=== PATIENT | female | born 1930 | race Asian ===

== ENCOUNTER 2017-03-27 15:18 | Emergency (ER) | payer OTHER, MEDICAID ==
[~2017-03-27] VITALS: Ht 149.9 cm; Wt 38.1 kg
[~2017-03-27 15:18] MED LIST: ACAR100T3 PO; ACET-2165 PO; ATEN-166 PO; CLOP75TA2 PO; INSU100V9 SUBCUT; LACO10SO PO; LEVE500T13 PO; LIP40 PO; LOPE2CAP PO; LOSA100T11 PO; MAGN400O4 PO; MEMA5TAB PO; METF1000 PO; SENN-153 PO; SITA100T7 PO
[2017-03-27 15:28] VITALS: BP 117/65; PULSE 82; RESP 18; TEMP 97; O2SAT 97
[2017-03-27 16:47] LABS: ANION GAP 9 (5-15); BASOPHILS % (AUTO) 0.5 % (0.0-2.0); CALCIUM 9.3 mg/dL (8.4-11.0); CHLORIDE 100 mmol/L (98-107); CREATININE 0.99 mg/dL (0.55-1.30); EOSINOPHILS # (AUTO) 0.1 K/uL (0.0-0.4); EOSINOPHILS % (AUTO) 1.9 % (0.0-4.0); GLUCOSE 153 mg/dL (70-99); HEMATOCRIT 35.7 % (36-48); HEMOGLOBIN 11.9 g/dL (12.0-16.0); LYMPHOCYTES # (AUTO) 1.2 K/uL (1.0-5.5); LYMPHOCYTES % (AUTO) 22.7 % (20.5-51.5); MEAN CORPUSCULAR HEMOGLOBIN 31 pg (27-31); MEAN CORPUSCULAR HGB CONC 33 % (32-36); MEAN CORPUSCULAR VOLUME 93 fL (79.0-98.0); MONOCYTES # (AUTO) 0.3 K/uL (0.0-1.0); NEUTROPHILS # (AUTO) 3.7 K/uL (1.8-7.7); NEUTROPHILS % (AUTO) 68.9 % (40.0-70.0); PLATELET COUNT (AUTO) 259 K/uL (130-430); POTASSIUM 4.2 mmol/L (3.5-5.1); RED BLOOD CELL COUNT(AUTO) 3.84 MIL/uL (4.2-6.2); RED CELL DISTRIBUTION WIDTH 12.7 % (9.0-15.0); SODIUM SERUM 137 mmol/L (136-145); UREA NITROGEN, BLOOD 13 mg/dL (8-21); WHITE BLOOD COUNT (AUTO) 5.3 K/uL (4.8-10.8)
[2017-03-27 16:52] LABS: ALANINE AMINOTRANSFERASE 14 U/L (12-78); ALBUMIN 3.9 g/dL (3.4-4.8); ASPARTATE AMINOTRANSFERASE 10 U/L (10-37); TOTAL BILIRUBIN 0.3 mg/dL (0.0-1.0); TOTAL PROTEIN, SERUM 7.5 g/dL (6.4-8.3)
[2017-03-27] MEDS ORDERED: NACL 0.9% 1,000 ML IV ONE (17:30)
[2017-03-27 19:15] VITALS: BP 118/64; PULSE 86; RESP 18; TEMP 97; O2SAT 97
[2017-03-27] MEDS ORDERED: HYDROcodone/ACETAMIN 5-325 MG TAB (NORCO/ VICODIN) PO ONE (19:15)
== END 2017-03-27 19:15 | disposition home or self-care (01) ==
LOC: SED 15:18
DX: G43.909 Migraine, unspecified, not intractable, without status migrainosus (principal); M94.0 Chondrocostal junction syndrome [Tietze]; E11.9 Type 2 diabetes mellitus without complications; I10 Essential (primary) hypertension; F03.90 Unspecified dementia, unspecified severity, without behavioral disturbance, psychotic disturbance, mood disturbance, and anxiety; Z86.73 Personal history of transient ischemic attack (TIA), and cerebral infarction without residual deficits; Z88.0 Allergy status to penicillin; Z79.4 Long term (current) use of insulin
CPT/HCPCS: 36415; 70450; 71010; 71250; 74176; 80053; 84484; 85025; 93005; 96360; 99285; J7030

== ENCOUNTER 2017-05-03 21:01 | Inpatient (IN) | payer OTHER, MEDICAID ==
[~2017-05-03] VITALS: Ht 149.9 cm; Wt 39.0 kg
[2017-05-03 21:01] VITALS: BP_SYST 155
[2017-05-03] MEDS ORDERED: NACL 0.9% 1,000 ML IV ONE (21:45)
[2017-05-03 22:04] LABS: BASOPHILS % (AUTO) 0.6 % (0.0-2.0); EOSINOPHILS # (AUTO) 0.1 K/uL (0.0-0.4); EOSINOPHILS % (AUTO) 2.6 % (0.0-4.0); LYMPHOCYTES # (AUTO) 1.3 K/uL (1.0-5.5); MEAN CORPUSCULAR HEMOGLOBIN 32 pg (27-31); MEAN CORPUSCULAR HGB CONC 34 % (32-36); MEAN CORPUSCULAR VOLUME 94 fL (79.0-98.0); MONOCYTES # (AUTO) 0.3 K/uL (0.0-1.0); MONOCYTES % (AUTO) 4.9 % (1.7-9.3); NEUTROPHILS # (AUTO) 3.8 K/uL (1.8-7.7); NEUTROPHILS % (AUTO) 67.9 % (40.0-70.0); PLATELET COUNT (AUTO) 279 K/uL (130-430); RED BLOOD CELL COUNT(AUTO) 3.74 MIL/uL (4.2-6.2); RED CELL DISTRIBUTION WIDTH 12.5 % (9.0-15.0); WHITE BLOOD COUNT (AUTO) 5.5 K/uL (4.8-10.8)
[2017-05-03 22:24] LABS: ANION GAP 7 (5-15); CALCIUM 9.1 mg/dL (8.4-11.0); CHLORIDE 99 mmol/L (98-107); CREATININE 0.92 mg/dL (0.55-1.30); GLUCOSE 223 mg/dL (70-99); POTASSIUM 3.9 mmol/L (3.5-5.1); SODIUM SERUM 136 mmol/L (136-145); UREA NITROGEN, BLOOD 10 mg/dL (8-21)
[2017-05-03 22:29] LABS: ALANINE AMINOTRANSFERASE 11 U/L (12-78); ALBUMIN 3.7 g/dL (3.4-4.8); ASPARTATE AMINOTRANSFERASE 10 U/L (10-37); TOTAL BILIRUBIN 0.3 mg/dL (0.0-1.0); TOTAL PROTEIN, SERUM 7.5 g/dL (6.4-8.3)
[2017-05-03 23:07] LABS: BILIRUBIN,URINE NEGATIVE (NEGATIVE); BLOOD, URINE NEGATIVE (NEGATIVE); CLARITY/URINE CLEAR (CLEAR); COLOR,URINE YELLOW (YELLOW); GLUCOSE,URINE 1+ (NEGATIVE); KETONES,URINE NEGATIVE (NEGATIVE); LEUKOCYTE ESTERASE ,URINE NEGATIVE (NEGATIVE); NITRITE, URINE NEGATIVE (NEGATIVE); PROTEIN URINE NEGATIVE (NEGATIVE); UROBILINOGEN,URINE 0.2 (0.2-1.0)
[2017-05-03] MEDS ORDERED: ASPIRIN 81 MG TAB.CHEW PO ONE (23:30)
[2017-05-03] MEDS ORDERED: MEGE400O PO (23:43)
[2017-05-03] MEDS ORDERED: MEMA5TAB PO (23:43)
[2017-05-03] MEDS ORDERED: FOLI-43 PO (23:43)
[2017-05-03] MEDS ORDERED: LINA5TAB2 PO (23:43)
[2017-05-03] MEDS ORDERED: VITD400 PO (23:43)
[2017-05-03] MEDS ORDERED: 0.45% NACL 1,000 ML IV ONE (23:45)
[2017-05-04] VITALS (7 sets, daily range): BP systolic 110–150
[2017-05-04 06:32] LABS: BASOPHILS % (AUTO) 0.4 % (0.0-2.0); EOSINOPHILS # (AUTO) 0.1 K/uL (0.0-0.4); EOSINOPHILS % (AUTO) 1.8 % (0.0-4.0); HEMATOCRIT 33.8 % (36-48); HEMOGLOBIN 11.2 g/dL (12.0-16.0); MEAN CORPUSCULAR HEMOGLOBIN 31 pg (27-31); MEAN CORPUSCULAR HGB CONC 33 % (32-36); MEAN CORPUSCULAR VOLUME 94 fL (79.0-98.0); MONOCYTES # (AUTO) 0.3 K/uL (0.0-1.0); MONOCYTES % (AUTO) 5.8 % (1.7-9.3); NEUTROPHILS # (AUTO) 4.2 K/uL (1.8-7.7); PLATELET COUNT (AUTO) 257 K/uL (130-430); RED BLOOD CELL COUNT(AUTO) 3.58 MIL/uL (4.2-6.2); RED CELL DISTRIBUTION WIDTH 12.7 % (9.0-15.0); WHITE BLOOD COUNT (AUTO) 5.6 K/uL (4.8-10.8)
[2017-05-04 07:08] LABS: ANION GAP 9 (5-15); CALCIUM 8.9 mg/dL (8.4-11.0); CHLORIDE 106 mmol/L (98-107); CREATININE 0.63 mg/dL (0.55-1.30); GLUCOSE 191 mg/dL (70-99); POTASSIUM 3.8 mmol/L (3.5-5.1); SODIUM SERUM 144 mmol/L (136-145); UREA NITROGEN, BLOOD 8 mg/dL (8-21)
[2017-05-04 07:19] LABS: ALANINE AMINOTRANSFERASE 10 U/L (12-78); ALBUMIN 3.4 g/dL (3.4-4.8); ASPARTATE AMINOTRANSFERASE 9 U/L (10-37); CREATINE KINASE, TOTAL 19 U/L (26-192); TOTAL BILIRUBIN 0.4 mg/dL (0.0-1.0); TOTAL PROTEIN, SERUM 6.8 g/dL (6.4-8.3)
[2017-05-04] MEDS ORDERED: MILK OF MAGNESIA 30 ML UDC PO PRN ×2 (08:30→19:30)
[2017-05-04] MEDS: MEMANTINE HCL 5 MG TABLET PO SCH ×2 (09:00→21:31)
[2017-05-04] MEDS ORDERED: MEMANTINE HCL 5 MG TABLET PO SCH (09:00)
[2017-05-04] MEDS ORDERED: GLUCOSE 15 GM GEL (in 37.5 GM TUBE) PO PRN ×2 (09:45)
[2017-05-04] MEDS ORDERED: DEXTROSE 50%-WATER 50 ML DISP.SYRIN IVP PRN ×2 (09:45)
[2017-05-04] MEDS: MEGESTROL ACETATE 400 MG/10 ML UDC PO SCH (13:04)
[2017-05-04] MEDS: FOLIC ACID 1 MG TABLET PO SCH (13:05)
[2017-05-04] MEDS: CHOLECALCIFEROL (VITAMIN D-3) 400 UNIT TABLET PO SCH (13:05)
[2017-05-04] MEDS: CLOPIDOGREL BISULFATE 75 MG TABLET PO SCH (13:05)
[2017-05-04] MEDS: levETIRAcetam 500 MG TABLET PO SCH ×2 (13:05→21:31)
[2017-05-04] MEDS: ATENOLOL 25 MG TABLET(TENORMIN) PO SCH (13:07)
[2017-05-04] MEDS: INSULIN REGULAR, HUMAN 100 UNITS/ML, 10 ML VIAL (novoLIN R) SUBCUT PRN ×3 (13:17→21:31)
[2017-05-04] MEDS: metFORMIN HCL 500 MG TABLET PO SCH (18:34)
[2017-05-04] MEDS: LACOSAMIDE 100 MG TABLET PO SCH (21:31)
[2017-05-05 05:34] VITALS: BP_SYST 125
[2017-05-05] MEDS: INSULIN REGULAR, HUMAN 100 UNITS/ML, 10 ML VIAL (novoLIN R) SUBCUT PRN ×3 (06:50→20:46)
[2017-05-05 08:10] VITALS: BP_SYST 128
[2017-05-05] MEDS: MEMANTINE HCL 5 MG TABLET PO SCH ×2 (08:40→20:39)
[2017-05-05] MEDS: CHOLECALCIFEROL (VITAMIN D-3) 400 UNIT TABLET PO SCH (08:40)
[2017-05-05] MEDS: metFORMIN HCL 500 MG TABLET PO SCH ×2 (08:40→17:36)
[2017-05-05] MEDS: CLOPIDOGREL BISULFATE 75 MG TABLET PO SCH (08:40)
[2017-05-05] MEDS: MEGESTROL ACETATE 400 MG/10 ML UDC PO SCH (08:40)
[2017-05-05] MEDS: LACOSAMIDE 100 MG TABLET PO SCH ×2 (08:41→20:39)
[2017-05-05] MEDS: ATENOLOL 25 MG TABLET(TENORMIN) PO SCH (08:42)
[2017-05-05] MEDS: FOLIC ACID 1 MG TABLET PO SCH (08:42)
[2017-05-05] MEDS: levETIRAcetam 500 MG TABLET PO SCH ×2 (08:42→20:39)
[2017-05-05 12:26] VITALS: BP_SYST 157
[2017-05-05 16:13] VITALS: BP_SYST 121
[2017-05-05 19:50] VITALS: BP_SYST 102
[2017-05-06] VITALS: BP_SYST 118
[2017-05-06 06:00] VITALS: BP_SYST 127
[2017-05-06] MEDS: INSULIN REGULAR, HUMAN 100 UNITS/ML, 10 ML VIAL (novoLIN R) SUBCUT PRN ×2 (06:21→11:25)
[2017-05-06] MEDS: FOLIC ACID 1 MG TABLET PO SCH (09:57)
[2017-05-06] MEDS: ATENOLOL 25 MG TABLET(TENORMIN) PO SCH (09:59)
[2017-05-06] MEDS: levETIRAcetam 500 MG TABLET PO SCH (09:59)
[2017-05-06] MEDS: CHOLECALCIFEROL (VITAMIN D-3) 400 UNIT TABLET PO SCH (09:59)
[2017-05-06] MEDS: LACOSAMIDE 100 MG TABLET PO SCH (09:59)
[2017-05-06] MEDS: CLOPIDOGREL BISULFATE 75 MG TABLET PO SCH (09:59)
[2017-05-06] MEDS: metFORMIN HCL 500 MG TABLET PO SCH (10:00)
[2017-05-06] MEDS: MEGESTROL ACETATE 400 MG/10 ML UDC PO SCH (10:00)
[2017-05-06] MEDS: MEMANTINE HCL 5 MG TABLET PO SCH (10:00)
[2017-05-06 10:01] VITALS: BP_SYST 156
[2017-05-06 12:27] VITALS: BP_SYST 135
[2017-05-06 12:31] VITALS: BP_SYST 135
[2017-05-06 16:23] VITALS: BP_SYST 126
== END 2017-05-06 16:00 | DRG 884 ==
LOC: SED 21:01 → STU 23:31 → SMU 05-04 16:23
PROVIDERS: ADMIT Family Medicine; ATTEND Family Medicine
DX: F03.90 Unspecified dementia, unspecified severity, without behavioral disturbance, psychotic disturbance, mood disturbance, and anxiety (principal); G93.41 Metabolic encephalopathy; Z68.1 Body mass index [BMI] 19.9 or less, adult; Z74.01 Bed confinement status; I10 Essential (primary) hypertension; E11.9 Type 2 diabetes mellitus without complications; G40.909 Epilepsy, unspecified, not intractable, without status epilepticus; Z88.0 Allergy status to penicillin; Z79.899 Other long term (current) drug therapy; Z86.73 Personal history of transient ischemic attack (TIA), and cerebral infarction without residual deficits
CPT/HCPCS: 36415; 70450-TC; 71010; 80053; 81003; 82550-TC; 82962; 84484; 85025; 93005; 93306; 96360; 97110-GP; 97116-GP; 97530-GP; 99285; J1815; J7030

== ENCOUNTER 2017-06-10 12:36 | Inpatient (IN) | payer OTHER, MEDICAID ==
[~2017-06-10] VITALS: Ht 152.4 cm; Wt 44.9 kg
[2017-06-10 12:36] VITALS: BP_SYST 118
[~2017-06-10 12:36] MED LIST changes: -ACAR100T3 PO; -ACET-2165 PO; +FOLI-43 PO; -INSU100V9 SUBCUT; +LINA5TAB2 PO; -LIP40 PO; -LOPE2CAP PO; -LOSA100T11 PO; -MAGN400O4 PO; +MEGE400O PO; -SENN-153 PO; -SITA100T7 PO; +VITD400 PO
[2017-06-10 14:15] LABS: BLOOD GAS PH 7.469 (7.350-7.450)
[2017-06-10 14:16] LABS: ABG TOTAL HEMOGLOBIN 11.9 G/dL (12.0-18.0); BLOOD GAS COHb% 0.2 % (0.5-1.5); BLOOD O2Hb% 74.4 % (94.0-97.0)
[2017-06-10 14:17] LABS: BLOOD GAS HHB 25.3 % (0.0-6.0)
[2017-06-10 14:37] LABS: BASOPHILS # (AUTO) 0.1 K/uL (0.0-0.2); BASOPHILS % (AUTO) 1.1 % (0.0-2.0); EOSINOPHILS # (AUTO) 0.1 K/uL (0.0-0.4); EOSINOPHILS % (AUTO) 0.4 % (0.0-4.0); HEMATOCRIT 34.3 % (36-48); HEMOGLOBIN 11.3 g/dL (12.0-16.0); LYMPHOCYTES # (AUTO) 0.6 K/uL (1.0-5.5); LYMPHOCYTES % (AUTO) 4.6 % (20.5-51.5); MEAN CORPUSCULAR HEMOGLOBIN 32 pg (27-31); MEAN CORPUSCULAR HGB CONC 33 % (32-36); MEAN CORPUSCULAR VOLUME 96 fL (79.0-98.0); MONOCYTES # (AUTO) 0.1 K/uL (0.0-1.0); NEUTROPHILS # (AUTO) 12.2 K/uL (1.8-7.7); NEUTROPHILS % (AUTO) 92.9 % (40.0-70.0); PLATELET COUNT (AUTO) 377 K/uL (130-430); RED BLOOD CELL COUNT(AUTO) 3.56 MIL/uL (4.2-6.2); RED CELL DISTRIBUTION WIDTH 13.5 % (9.0-15.0); WHITE BLOOD COUNT (AUTO) 13.1 K/uL (4.8-10.8)
[2017-06-10 14:51] LABS: ANION GAP 10 (5-15); CALCIUM 8.8 mg/dL (8.4-11.0); CHLORIDE 103 mmol/L (98-107); CREATININE 0.89 mg/dL (0.55-1.30); GLUCOSE 176 mg/dL (70-99); SODIUM SERUM 140 mmol/L (136-145); UREA NITROGEN, BLOOD 20 mg/dL (8-21)
[2017-06-10 14:55] LABS: ACETAMINOPHEN 10 ug/mL (1-30); ALANINE AMINOTRANSFERASE 88 U/L (12-78); ALBUMIN 3.2 g/dL (3.4-4.8); ALCOHOL, BLOOD < 3 mg/dL (<10); ASPARTATE AMINOTRANSFERASE 94 U/L (10-37); SALICYLATE 2 mg/dL (3-30); TOTAL BILIRUBIN 0.4 mg/dL (0.0-1.0); TOTAL PROTEIN, SERUM 7.2 g/dL (6.4-8.3)
[2017-06-10] MEDS ORDERED: ETOMIDATE 20 MG/ 10 ML VIAL (AMIDATE) IVP ONE ×2 (15:00→17:00)
[2017-06-10] MEDS ORDERED: SUCCINYLCHOLINE CHLORIDE 20 MG/ML(QUELICIN) IVP ONE ×2 (15:00→17:00)
[2017-06-10 15:03] LABS: INR 0.9 (0.8-1.2); PROTHROMBIN TIME 10.1 SECS (9.5-12.5)
[2017-06-10] MEDS ORDERED: NACL 0.9% 1,000 ML IV ONE (16:15)
[2017-06-10] MEDS ORDERED: GENTAMICIN 80 mg/100 mL NS 100 ML IV ONE (16:30)
[2017-06-10] MEDS ORDERED: VANCOMYCIN HCL 1,000 MG in NS 250 ML IV ONE (16:30)
[2017-06-10] MEDS ORDERED: LORazepam 2 MG/ML VIAL (FOR ER USE) ONE (16:47)
[2017-06-10] MEDS ORDERED: PROPOFOL DRIP 100 ML IV ONE ×2 (16:48→17:00)
[2017-06-10] MEDS ORDERED: VANCOMYCIN HCL 1000 MG/VIAL IV ONE (16:55)
[2017-06-10] MEDS ORDERED: LORazepam 2 MG/ML VIAL (FOR ER USE) IVP ONE (17:00)
[2017-06-10 17:18] LABS: BILIRUBIN,URINE NEGATIVE (NEGATIVE); BLOOD, URINE NEGATIVE (NEGATIVE); CLARITY/URINE CLEAR (CLEAR); COLOR,URINE YELLOW (YELLOW); GLUCOSE,URINE TRACE (NEGATIVE); KETONES,URINE NEGATIVE (NEGATIVE); LEUKOCYTE ESTERASE ,URINE NEGATIVE (NEGATIVE); NITRITE, URINE NEGATIVE (NEGATIVE); PROTEIN URINE 1+ (NEGATIVE); UROBILINOGEN,URINE 0.2 (0.2-1.0)
[2017-06-10] MEDS ORDERED: TRAM50TA92 PO (17:19)
[2017-06-10] MEDS ORDERED: ACET325T53 PO (17:19)
[2017-06-10] MEDS ORDERED: MELA3TAB37 PO (17:19)
[2017-06-10] MEDS ORDERED: LIP40 PO (17:19)
[2017-06-10 17:24] LABS: BLOOD GAS PH 7.412 (7.350-7.450)
[2017-06-10 17:26] LABS: ABG TOTAL HEMOGLOBIN 10.1 G/dL (12.0-18.0); BLOOD GAS BASE EXCESS -6.2 mmol/L (-3.0-3.0); BLOOD GAS COHb% 0.3 % (0.5-1.5); BLOOD GAS HHB 1.9 % (0.0-6.0); BLOOD O2Hb% 97.7 % (94.0-97.0)
[2017-06-10] MEDS ORDERED: IOHEXOL 100 ML IV ONE (17:38)
[2017-06-10 17:44] LABS: BACTERIA,URINE MODERATE /HPF (None Seen); RBC,URINE 0-3 /HPF (0-3)
[2017-06-10 17:45] LABS: MUCUS,URINE 1+ /LPF (None Seen); YEAST,URINE Few /HPF (None Seen)
[2017-06-10] MEDS ORDERED: ACETAMINOPHEN 325 MG TABLET PO PRN (19:30)
[2017-06-10] MEDS ORDERED: HYDROCORTISONE SOD SUCC 100 MG/2 ML VIAL ONE ×2 (19:31→19:32)
[2017-06-10] MEDS ORDERED: NOREPINEPHRINE 4 MG/4 ML VIAL IV ONE (19:44)
[2017-06-10] MEDS ORDERED: DEXTROSE 50% JECT 50 ML DISP.SYRIN IVP PRN (19:45)
[2017-06-10] MEDS ORDERED: INSULIN REGULAR, HUMAN 100 UNITS/ML, 10 ML VIAL (novoLIN R) SUBCUT PRN (19:45)
[2017-06-10 20:00] VITALS: BP_SYST 115
[2017-06-10] MEDS ORDERED: NOREPINEPHRINE BITARTRATE 4 MG in D5W 246 ML IV PRN (20:00)
[2017-06-10] MEDS ORDERED: NACL 0.9% 1,000 ML IV SCH (20:15)
[2017-06-10 20:26] LABS: MEAN CORPUSCULAR HGB CONC 32 % (32-36)
[2017-06-10 20:31] LABS: HEMATOCRIT 26.1 % (36-48); HEMOGLOBIN 8.4 g/dL (12.0-16.0); MEAN CORPUSCULAR HEMOGLOBIN 32 pg (27-31); MEAN CORPUSCULAR VOLUME 99 fL (79.0-98.0); PLATELET COUNT (AUTO) 254 K/uL (130-430); RED BLOOD CELL COUNT(AUTO) 2.63 MIL/uL (4.2-6.2); RED CELL DISTRIBUTION WIDTH 13.2 % (9.0-15.0)
[2017-06-10 20:34] LABS: WHITE BLOOD COUNT (AUTO) 21.2 K/uL (4.8-10.8)
[2017-06-10 20:38] LABS: ANION GAP 20 (5-15); CHLORIDE 111 mmol/L (98-107); GLUCOSE 245 mg/dL (70-99); SODIUM SERUM 152 mmol/L (136-145); UREA NITROGEN, BLOOD 27 mg/dL (8-21)
[2017-06-10 20:42] LABS: BLOOD GAS PH 7.071 (7.350-7.450)
[2017-06-10 20:43] LABS: ABG TOTAL HEMOGLOBIN 9.2 G/dL (12.0-18.0); BLOOD GAS BASE EXCESS -21.1 mmol/L (-3.0-3.0); BLOOD GAS COHb% 0.3 % (0.5-1.5); BLOOD GAS HHB 1.7 % (0.0-6.0); BLOOD O2Hb% 97.2 % (94.0-97.0)
[2017-06-10] MEDS ORDERED: SODIUM BICARBONATE 8.4% JECT 100 MEQ in D5W 1,000 ML IV SCH (20:45)
[2017-06-10] MEDS ORDERED: SODIUM BICARBONATE 8.4% JECT 50 MEQ/50 ML SYRINGE ONE ×2 (20:45→21:38)
[2017-06-10 20:51] VITALS: BP_SYST 171
[2017-06-10 20:54] VITALS: BP_SYST 171
[2017-06-10 20:59] LABS: ALANINE AMINOTRANSFERASE 904 U/L (12-78); ALBUMIN 1.7 g/dL (3.4-4.8); ASPARTATE AMINOTRANSFERASE 1185 U/L (10-37)
[2017-06-10] MEDS ORDERED: levETIRAcetam 500 MG in NS 100 ML IV SCH (21:00)
[2017-06-10] MEDS ORDERED: PANTOPRAZOLE SODIUM 40 MG/VIAL (PROTONIX) IVP SCH (21:00)
[2017-06-10] MEDS ORDERED: ENOXAPARIN SODIUM 40 MG/0.4 ML SYRINGE SUBCUT ONE (21:00)
[2017-06-10] MEDS ORDERED: levETIRAcetam 500 MG TABLET PO SCH (21:00)
[2017-06-10] MEDS ORDERED: ATORVASTATIN 20 MG TABLET PO SCH (21:00)
[2017-06-10 21:07] LABS: POTASSIUM 6.6 mmol/L (3.5-5.1)
[2017-06-10 21:08] LABS: CALCIUM 6.9 mg/dL (8.4-11.0)
[2017-06-10 21:46] LABS: ATYPICAL LYMPHOCYTES % 4 % (0-0); BAND % (MANUAL) 33 % (0-6); EOSINOPHILS % (MANUAL) 0 % (0-7); LYMPHOCYTES % (MANUAL) 12 % (20-46); MONOCYTES % (MANUAL) 4 % (0-11)
[2017-06-10] MEDS ORDERED: MAGNESIUM SULFATE 0 ML IV ONE (21:46)
[2017-06-10 21:47] LABS: BASOPHILS % (MANUAL) 0 % (0-2)
[2017-06-10] MEDS ORDERED: MAGNESIUM SULFATE 1 GM/2 ML VIAL ONE (21:47)
[2017-06-11] MEDS ORDERED: HYDROCORTISONE SOD SUCC 100 MG/2 ML VIAL IVP SCH
[2017-06-11] MEDS ORDERED: CLOPIDOGREL BISULFATE 75 MG TABLET PO SCH (09:00)
[2017-06-11] MEDS ORDERED: ENOXAPARIN SODIUM 40 MG/0.4 ML SYRINGE SUBCUT SCH (09:00)
[2017-06-11] MEDS ORDERED: FOLIC ACID 1 MG TABLET PO SCH (09:00)
[2017-06-11] MEDS ORDERED: CHOLECALCIFEROL (VITAMIN D-3) 400 UNIT TABLET PO SCH (09:00)
== END 2017-06-10 21:45 | disposition expired | DRG 871 ==
LOC: SED 12:36 → SIC 18:06
PROVIDERS: ADMIT Internal Medicine; ATTEND Internal Medicine
PROC: 0BH18EZ Insertion of Endotracheal Airway into Trachea, Via Natural or Artificial Opening Endoscopic (ICD-10-PCS; principal; 2017-06-10)
PROC: 06HY33Z Insertion of Infusion Device into Lower Vein, Percutaneous Approach (ICD-10-PCS; 2017-06-10)
PROC: B54BZZA Ultrasonography of Right Lower Extremity Veins, Guidance (ICD-10-PCS; 2017-06-10)
DX: A41.9 Sepsis, unspecified organism (principal); I21.3 ST elevation (STEMI) myocardial infarction of unspecified site; J96.01 Acute respiratory failure with hypoxia; R65.21 Severe sepsis with septic shock; I95.9 Hypotension, unspecified; N39.0 Urinary tract infection, site not specified; E11.9 Type 2 diabetes mellitus without complications; F03.90 Unspecified dementia, unspecified severity, without behavioral disturbance, psychotic disturbance, mood disturbance, and anxiety; E78.5 Hyperlipidemia, unspecified; I10 Essential (primary) hypertension; Z86.73 Personal history of transient ischemic attack (TIA), and cerebral infarction without residual deficits; Z88.0 Allergy status to penicillin; Z79.4 Long term (current) use of insulin; Z98.49 Cataract extraction status, unspecified eye; Z79.899 Other long term (current) drug therapy
CPT/HCPCS: 36415; 36600; 71010; 71275; 80053; 81000-TC; 82803-TC; 82962; 83605; 83735-TC; 84484; 85007; 85025; 85027; 85610-TC; 85730-TC; 86886; 86900; 86901; 87040-TC; 87086; 92950; 93005; 94002; 94640; 96365; 99285; C1751; C9113; G0480; G0481; G0482; J0330; J1580; J1650; J1720; J1815; J1953; J1956; J2060; J2704; J3370; J3475; J3490; J7040; J7050; J7060; Q9967